=== PATIENT | female | born 1980 | race Caucasian/White ===

== ENCOUNTER 2022-12-29 09:26 | Outpatient (CLI) | payer BC ==
[2022-12-29] MEDS ORDERED: Iopamidol 300 61% 100 ML VIAL FS ONE (12:10)
== END 2022-12-29 09:27 | disposition home or self-care (01) ==
LOC: CSHCT 09:26
PROVIDERS: ATTEND Family Medicine
DX: R19.4 Change in bowel habit (principal); R10.31 Right lower quadrant pain
CPT/HCPCS: 74177; Q9967

== ENCOUNTER 2025-01-13 09:51 | Outpatient (CLI) | payer BC | END 2025-01-13 09:52 | disposition home or self-care (01) | LOC: CSHMAMMO 09:51 | PROVIDERS: ATTEND Family Medicine | DX: Z12.31 Encounter for screening mammogram for malignant neoplasm of breast (principal) | CPT/HCPCS: 77063; 77067 ==